=== PATIENT | male | born 1930 | race African-American/Black ===

== ENCOUNTER 2016-08-21 14:21 | Emergency (ER) | payer OTHER ==
[~2016-08-21] VITALS: Ht 177.8 cm; Wt 57.0 kg
[2016-08-21] MEDS ORDERED: SODIUM CHLORIDE 0.9% 1,000 ML IV ONE (16:45)
[2016-08-21 21:31] VITALS: BP 134/50
== END 2016-08-21 21:52 | disposition short-term general hospital (02) ==
LOC: ER 16:01
DX: R62.7 Adult failure to thrive (principal); G20 Parkinson's disease; E46 Unspecified protein-calorie malnutrition; R50.9 Fever, unspecified; R53.1 Weakness; L89.899 Pressure ulcer of other site, unspecified stage
CPT/HCPCS: 70450; 71010; 93005; 96360; 99285; J7030